=== PATIENT | female | born 1960 | race African-American/Black ===

== ENCOUNTER 2018-08-02 06:19 | Day surgery (SDC) | payer MEDICAID ==
[~2018-08-02 06:19] MED LIST: LACTATED RINGERS 1,000 ML IV SCH
[2018-08-02] MEDS ORDERED: BUPIVACAINE HCL/EPINEPHRINE 0.5%/0.0005 30ML ONE (07:47)
[2018-08-02] MEDS ORDERED: BUPIVACAINE HCL 0.5% (5MG/ML) 50ML ONE (07:48)
[2018-08-02] MEDS ORDERED: FENTANYL CITRATE/PF 50MCG/ML 2ML VIAL ONE (07:59)
[2018-08-02] MEDS ORDERED: MIDAZOLAM HCL 2 MG/2 ML VIAL ONE (07:59)
[2018-08-02] MEDS ORDERED: PROPOFOL 200MG/20ML VIAL IV ONE (07:59)
[2018-08-02] MEDS ORDERED: LIDOCAINE HCL/PF 1% 10 MG/ML 5ML VIAL ONE (08:00)
[2018-08-02] MEDS ORDERED: ONDANSETRON HCL 4MG/2ML INJ ONE (08:00)
[2018-08-02] MEDS ORDERED: SUCCINYLCHOLINE CHLORIDE 200MG/10ML IV ONE (08:00)
[2018-08-02] MEDS ORDERED: METOCLOPRAMIDE HCL 10MG/2ML VIAL ONE (08:00)
[2018-08-02] MEDS ORDERED: GLYCOPYRROLATE 0.2 MG/ML 2ML VIAL ONE (08:00)
[2018-08-02] MEDS ORDERED: SODIUM CHLORIDE 0.9% 1,000 ML IV ONE (08:44)
[2018-08-02] MEDS ORDERED: MEPERIDINE HCL/PF 25MG/ML CPJ IV PRN (08:45)
[2018-08-02] MEDS ORDERED: ONDANSETRON HCL 4MG/2ML INJ IV PRN (08:45)
[2018-08-02] MEDS ORDERED: HYDROMORPHONE HCL/PF 2MG/ML CPJ IV PRN (08:45)
[2018-08-02] MEDS ORDERED: DIPH25CA83 PO (08:52)
[2018-08-02] MEDS ORDERED: IBUP-2029 PO (08:52)
[2018-08-02] MEDS ORDERED: LOSA100T14 PO (08:52)
[2018-08-02] MEDS ORDERED: IBUP-2028 PO (08:52)
[2018-08-02] MEDS ORDERED: HYDROCODONE/ACETAMINOPHEN 5/325MG TABLET PO PRN (09:30)
== END 2018-08-02 10:30 | disposition home or self-care (01) ==
LOC: OR 06:19
PROVIDERS: ATTEND Surgery
DX: K64.1 Second degree hemorrhoids (principal); I10 Essential (primary) hypertension; Z98.51 Tubal ligation status; E78.00 Pure hypercholesterolemia, unspecified
CPT/HCPCS: 46945; 88304; J0171; J0330; J2250; J2405; J2765; J3010; J3490; J7120; J2704

== ENCOUNTER 2020-09-18 10:32 | Emergency (ER) | payer MEDICAID ==
[~2020-09-18] VITALS: Ht 170.2 cm; Wt 68.0 kg
[~2020-09-18 10:32] MED LIST changes: +DIPH25CA83 PO; +IBUP-2029 PO; -LACTATED RINGERS 1,000 ML IV SCH; +LOSA100T32 PO
[2020-09-18] MEDS ORDERED: ONDANSETRON HCL 4MG/2ML INJ IV STA (11:05)
[2020-09-18] MEDS ORDERED: SODIUM CHLORIDE 0.9% 1,000 ML IV ONE (11:15)
[2020-09-18 11:50] LABS: BASOPHILS % 0.7 % (0.0-2.0); EOSINOPHILS % 2.1 % (0.0-5.0); HEMATOCRIT. 42.8 % (36.0-48.0); HEMOGLOBIN. 14.4 g/dL (12.0-16.0); LYMPHOCYTES % 30.9 % (20.0-50.0); MEAN CORPUSCULAR HEMOGLOBIN 30.2 pg (28.0-32.0); MEAN CORPUSCULAR VOLUME 89.8 fL (81.0-99.0); MEAN PLATELET VOLUME 7.9 fl (7.4-10.4); MONOCYTES % 7.6 % (2.0-8.0); NEUTROPHILS % 58.7 % (40.0-76.0); PLATELET 205 x1000/uL (130-400); RED BLOOD CELL COUNT 4.77 mill/uL (4.2-5.4); RED CELL DISTRIBUTION WIDTH 13.7 % (11.6-14.6)
[2020-09-18 12:00] LABS: CHLORIDE 103 mEq/L (98-107)
[2020-09-18 13:11] VITALS: BP 148/78
== END 2020-09-18 13:12 | disposition home or self-care (01) ==
LOC: ER 10:32
DX: R11.2 Nausea with vomiting, unspecified (principal); K52.9 Noninfective gastroenteritis and colitis, unspecified; I49.9 Cardiac arrhythmia, unspecified; Z91.040 Latex allergy status; Z20.828 Contact with and (suspected) exposure to other viral communicable diseases
CPT/HCPCS: 36415; 80053; 85025; 87635; 93005; 96361; 96374; 99284; C9803; J2405; J7030

== ENCOUNTER 2021-08-01 16:25 | Emergency (ER) | payer MEDICAID ==
[~2021-08-01] VITALS: Ht 167.6 cm; Wt 64.0 kg
[2021-08-01 20:17] VITALS: BP 126/69
== END 2021-08-01 20:18 | disposition home or self-care (01) ==
LOC: ER 16:25
DX: E78.00 Pure hypercholesterolemia, unspecified (principal); I10 Essential (primary) hypertension; Z98.51 Tubal ligation status
CPT/HCPCS: 99281

== ENCOUNTER 2022-07-03 07:17 | Emergency (ER) | payer MEDICAID ==
[~2022-07-03] VITALS: Ht 170.2 cm; Wt 63.0 kg
[2022-07-03 07:22] VITALS: BP 158/108
== END 2022-07-03 10:25 | disposition left against medical advice (07) ==
LOC: ER 07:17
DX: R07.89 Other chest pain (principal); Z53.21 Procedure and treatment not carried out due to patient leaving prior to being seen by health care provider

== ENCOUNTER 2024-03-13 12:17 | Emergency (ER) | payer MEDICAID, MEDICARE ==
[~2024-03-13] VITALS: Ht 170.2 cm; Wt 62.1 kg
[~2024-03-13 12:17] MED LIST changes: -LOSA100T32 PO; +LOSA100T33 PO
[2024-03-13 12:26] VITALS: TEMP 98.2; O2SAT 100
[2024-03-13] MEDS ORDERED: NAPR220C61 MT (13:35)
[2024-03-13] MEDS ORDERED: LIDO700A15 TP (13:35)
[2024-03-13] MEDS: IBUPROFEN 600MG TABLET PO ONE (14:18)
[2024-03-13 14:19] VITALS: BP 172/91; PULSE 65; RESP 18
== END 2024-03-13 14:39 | disposition home or self-care (01) ==
LOC: ER 12:17
DX: M25.511 Pain in right shoulder (principal); G89.11 Acute pain due to trauma; I10 Essential (primary) hypertension; Z98.51 Tubal ligation status; Z91.040 Latex allergy status; V49.40XA Driver injured in collision with unspecified motor vehicles in traffic accident, initial encounter; Y93.89 Activity, other specified; Y92.89 Other specified places as the place of occurrence of the external cause; Y99.8 Other external cause status
CPT/HCPCS: 99281